=== PATIENT | male | born 1935 | race Caucasian/White ===

== ENCOUNTER 2022-01-29 05:53 | Inpatient (IN) ==
[2022-01-29] MEDS ORDERED: *HR* OxyCODONE Immed Rel 5 MG TABLET PO PRN ×2 (06:36→12:16)
[2022-01-29] MEDS ORDERED: *HR* HYDROmorphone PF 0.5 MG/0.5 ML SYRINGE IVP PRN (06:36)
[2022-01-29] MEDS ORDERED: *HR* FentaNYL (PF) 100 MCG/2 ML VIAL IVP PRN (06:36)
[2022-01-29] MEDS ORDERED: tiZANidine 4 MG TABLET PO SCH (06:36)
[2022-01-29] MEDS ORDERED: Famotidine 20 MG/2 ML VIAL IVP ONE (06:36)
[2022-01-29] MEDS ORDERED: Acetaminophen IV 1,000 MG/100 ML BAG IVPB ONE (06:36)
[2022-01-29] MEDS ORDERED: Ondansetron 4 MG/2 ML VIAL IVP PRN ×2 (06:36→12:16)
[2022-01-29] MEDS ORDERED: Albuterol 2.5 MG/3 ML NEBULIZER IH ONE (06:44)
[2022-01-29] MEDS ORDERED: Ringers Solution, Lactated 1,000 ML IVC SCH ×2 (06:45→12:16)
[2022-01-29] MEDS ORDERED: Vancomycin 1,500 MG/265 ML IV.SOLN IVPB ONE ×2 (07:00→19:00)
[2022-01-29] MEDS ORDERED: *HR* FentaNYL (PF) 100 MCG/2 ML VIAL ONE (07:00)
[2022-01-29] MEDS ORDERED: *HR* Succinylcholine 200 MG/10 ML VIAL IVP ONE (07:01)
[2022-01-29] MEDS ORDERED: *HR* Rocuronium Bromide 50 MG/5 ML VIAL ONE (07:01)
[2022-01-29] MEDS ORDERED: *HR* Propofol 200 MG/20 ML VIAL IVP ONE (07:01)
[2022-01-29] MEDS ORDERED: Ondansetron 4 MG/2 ML VIAL ONE (07:01)
[2022-01-29] MEDS ORDERED: Lidocaine HCL 4 ML Topical Solution (Laryng-O-Jet Kit Sterile Pak) TP ONE (07:01)
[2022-01-29] MEDS ORDERED: Lidocaine -MPF 2% 2 ML VIAL ONE (07:01)
[2022-01-29] MEDS ORDERED: Bupivacaine/EPI 1:200k 0.25% 50 ML VIAL ONE (07:16)
[2022-01-29] MEDS ORDERED: EPHEDrine sulfate 50 MG/10 ML VIAL IVP ONE (08:11)
[2022-01-29] MEDS ORDERED: Vancomycin 1,000 MG VIAL ONE (09:29)
[2022-01-29] MEDS ORDERED: Sugammadex Sodium 200 MG/2 ML VIAL IV ONE (09:51)
[2022-01-29] MEDS ORDERED: *HR* HYDROMORPHONE 2 MG/ML VIAL ONE (09:52)
[2022-01-29] MEDS ORDERED: Naloxone 0.4 MG/ML INJ IVP PRN (12:16)
[2022-01-29] MEDS ORDERED: *HR* HYDROcodone/Acet 5/325 mg TABLET PO PRN (12:16)
[2022-01-29] MEDS: Acetaminophen 325 MG TABLET PO SCH ×3 (16:13→23:46)
[2022-01-29] MEDS: carvediloL 6.25 MG TABLET PO SCH (18:23)
[2022-01-29] MEDS ORDERED: Insulin DETEMIR 100 UNIT/ML X5UNITS SUBQ SCH (21:00)
[2022-01-30] MEDS: Acetaminophen 325 MG TABLET PO SCH (05:02)
[2022-01-30 05:14] VITALS: TEMP 98.1
[2022-01-30 08:28] LABS: Basophils # 0.1 K/mcL (0.0-0.2); Basophils % 0.4 %; Eosinophils % 0.1 %; Hematocrit 37.2 % (37.5-50.1); Hemoglobin 12.4 g/dL (12.9-16.9); Immature Granulocytes % 1.1 % (0-4); Lymphocytes # 1.9 K/mcL (0.6-4.6); Mean Corpuscular HGB Conc 33.3 g/dL (31.6-35.5); Mean Corpuscular Hemoglobin 31.4 pg (28.0-33.3); Mean Corpuscular Volume 94.2 fL (83.0-100.0); Mean Platelet Volume 10.8 fL (9.4-12.4); Monocytes # 2.1 K/mcL (0.0-1.3); Monocytes % 12.9 %; Neutrophils # 11.8 K/mcL (1.6-8.9); Platelet Count 177 K/mcL (140-400); Red Blood Count 3.95 M/mcL (4.19-5.50); Red Cell Distribution Width 12.7 % (11.5-14.5); Segmented Neutrophils % 73.5 %
[2022-01-30 08:49] LABS: Calcium 9.1 mg/dL (8.6-10.3); Potassium 4.3 mEq/L (3.5-5.1)
[2022-01-30] MEDS ORDERED: amLODIPine 5 MG TABLET PO SCH (09:00)
[2022-01-30] MEDS: carvediloL 6.25 MG TABLET PO SCH (09:24)
[2022-01-30] MEDS ORDERED: Flu Vac QV 22-23 (6MOS UP)/PF 0.5 ML SYRINGE IM ONE (09:33)
[2022-01-30 10:49] VITALS: BP 156/68; PULSE 64; O2SAT 94
== END 2022-01-30 11:15 | disposition home or self-care (01) | DRG 517 ==
LOC: SDCAOSI 05:53 → 4WAOSI 10:19
PROVIDERS: ADMIT Student in an Organized Health Care Education/Training Program; ATTEND Student in an Organized Health Care Education/Training Program